=== PATIENT | female | born 1995 | race Caucasian/White ===

== ENCOUNTER 2018-10-22 07:34 | Outpatient (CLI) | payer OTHER ==
[~2018-10-22] VITALS: Ht 162.6 cm; Wt 80.6 kg
[2018-10-22 07:53] VITALS: Ht 162.6 cm; Wt 80.6 kg
[2018-10-22] MEDS ORDERED: PNV11TAB PO ×2 (07:55→11:41)
--- NOTE | 2018-10-22 12:40 | TRIAGE ---
OB Triage Datetime Report Generated by CPN: 10/22/2018 12:40 Datetime: 10/22/2018 11:25 Stage of : OB Triage Vaginal Exam Dilatation (cms): 2.0 Effacement (%): 50 Station: -1 Exam By: DR SALCEDA Datetime: 10/22/2018 11:17 Labor Evaluation Frequency: 7-10 Monitor Mode: External Duration (sec)2399: 50-70 Quality: Mild Pattern: Normal: <= 5 Contractions in 10 Minutes Resting Tone Diamond: Relaxed Heart Rate FHR Baseline Rate: 135 Monitor Mode: External US Variability: Moderate 6-25 bpm Accelerations: 10X10 Decelerations: None Category: Category I Pain Assessment Pain Scale: 4 Pain Presence: Intermittent Pain Type: Cramping Pain Location: Abdomen Pain Goal: 3 Pain Relief Measures: Comfort Measures Datetime: 10/22/2018 10:16 Labor Evaluation Frequency: 15-20 Monitor Mode: External Duration (sec)2399: 40-50 Quality: Mild Pattern: Normal: <= 5 Contractions in 10 Minutes Resting Tone Diamond: Relaxed Heart Rate FHR Baseline Rate: 135 Monitor Mode: External US Variability: Moderate 6-25 bpm Accelerations: 10X10 Decelerations: None Category: Category I Pain Assessment Pain Scale: 5 Pain Presence: Intermittent Pain Type: Cramping Pain Location: Abdomen Pain Goal: 3 Pain Relief Measures: Comfort Measures Datetime: 10/22/2018 08:46 Labor Evaluation Frequency: 0 Monitor Mode: External Pattern: Normal: <= 5 Contractions in 10 Minutes Resting Tone Diamond: Relaxed Heart Rate FHR Baseline Rate: 145 Monitor Mode: External US Variability: Moderate 6-25 bpm Accelerations: 10X10 Decelerations: None Category: Category I Pain Assessment Pain Scale: 5 Pain Presence: Intermittent Pain Type: Cramping Pain Location: Abdomen Pain Goal: 3 Pain Relief Measures: Comfort Measures Datetime: 10/22/2018 08:23 Stage of : OB Triage Datetime: 10/22/2018 07:48 Stage of : OB Triage Assessment Type: Triage EGA: 39.4 Maternal Assessment Level of Consciousness: Fully Conscious DTR's/Clonus: DTRs 2+; No Clonus Headache: Denies Blurred Vision: No Respiratory Effort: Unlabored; Regular Rhythm; Equal Expansion Breath Sounds, Left: Clear and Equal Breath Sounds, Right: Clear and Equal Nausea/Vomiting: Denies RUQ Epigastric Pain: Denies Facial Edema: None Temperature Route: Axillary Fall Risk Assessment History of Falling: (0) No Secondary Diagnosis: (0) No Ambulatory Aid: (0) Bedrest/Nurse Assist IV Therapy: (0) No Gait: (0) Normal/Bedrest/Immobile Mental Status: (0) Oriented to Own Ability Fall Score: 0 Fall Risk Score Definition: No Risk: No action required Labor Evaluation Frequency: 0 Monitor Mode: External Interventions: Sterile Vaginal Exam Heart Rate FHR Baseline Rate: 140 Monitor Mode: External US Variability: Moderate 6-25 bpm Accelerations: 10X10 Decelerations: None Category: Category I Pain Assessment Pain Scale: 5 Pain Presence: Intermittent Pain Type: Cramping; Contraction Pain Location: Abdomen Pain Goal: 3 Pain Relief Measures: Comfort Measures Vaginal Exam Dilatation (cms): 0.5 Effacement (%): LONG Station: -2 Exam By: SLAYNE Membrane Status: Intact Datetime: 10/22/2018 07:47 Time of Arrival: 10/22/2018 07:26 Arrived By: Ambulatory Arrived From: Home Chief Complaint: C/O UC'S SINCE MIDNIGHT APPROX EVERY 10 MIN, DENIES BLEEDING OR LEAKING Movement: Decreased Contractions: Irregular Contractions: 10 Rupture of Membranes: Denies Vaginal Bleeding: None Vaginal Discharge: Present Recent Sexual Intercouse: Denies Abdominal Trauma: Not Applicable Patient Complaints: Contractions; Cramping Time Provider Notified: 10/22/2018 08:23 Provider Notified: ISA Initial Plan: MONITOR, VE, EFW, BPP, CBC, U/A
--- NOTE | 2018-10-22 16:25 | PREOPHP ---
DATE OF ADMISSION: 10/22/2018 HISTORY OF PRESENT ILLNESS: This is a 23-year-old lady, 2, para 1, EDC of 10/25/2018 at 39-4 /7 weeks, admitted to labor and delivery area to rule out labor. She had care in my [place] office and the care was uneventful. She started to have mild irregular contractions few ho urs prior to admission. PAST PERSONAL HISTORY: No history of TB, asthma. ALLERGIES: NO ALLERGIES. SOCIAL HISTORY: The patient does not smoke. She does not drink. MEDICATIONS: She does not take any drugs except her: 1. Iron. 2. Vitamins. GYNECOLOGIC HISTORY: She had menarche at the age of 9, every 28 days interval, 3 to 4 days duration and moderate in amount. OBSTETRICAL HISTORY: She is 2, para 1. Her first delivery was in 2016. Baby weighed 7 poun ds 4 ounces. REVIEW OF SYSTEMS: CARDIOVASCULAR: No chest pains. RESPIRATORY: No cough. GASTROINTESTINAL: No diarrhea, no vomiting. GENITOURINARY: No dysuria. PHYSICAL EXAMINATION: GENERAL: Reveals a conscious, coherent lady and in no acute distress. VITAL SIGNS: Her blood pressure is 120/80, pulse rate 80 per minute, respirations 16 per minute. BREASTS, HEART AND LUNGS: Within normal limits. ABDOMEN: Soft. Fundic height 38 cm. heart tones normal. PELVIC: Done by me revealed the cervix to be fingertip and thick station -2 in cephalic presentation with the bag of water intact. EXTREMITIES: No pedal edema. ADMITTING DIAGNOSIS: A 39 and 4/7 weeks intrauterine , rule out labor. The patient had an OB ultrasound and the estimated weight was 3918 grams, 8 pounds and 6 ounces with an SPENCER of 12. The plans were explained to the patient as to go for Pitocin augmentation or to wait until she gets her contraction. The risks, benefits and alternatives to each plan were explaine d to the patient and to her partner. The patient and the partner did not like to have Pitocin augmen tation. Both of them decided to wait and they like to be induced Friday. The procedures were explai anali to the patient and she understood everything totally. The risks, benefits and alternatives were discussed with them as well. Dictated By: SARAI LISA/ELLIS Conf#: [id number] [facility]#: [id number]
== END 2018-10-22 11:49 | disposition home or self-care (01) ==
LOC: OBT 07:34 → L-D 07:36 → OBT 11:49
PROVIDERS: ATTEND Obstetrics & Gynecology
DX: O62.9 Abnormality of forces of labor, unspecified (principal); O99.513 Diseases of the respiratory system complicating pregnancy, third trimester; J45.909 Unspecified asthma, uncomplicated; Z3A.39 39 weeks gestation of pregnancy
CPT/HCPCS: 76815; 76818; 81001; 85025; 87086; Z7500; G0463

== ENCOUNTER 2018-10-26 06:00 | Inpatient (IN) | payer OTHER ==
[~2018-10-26] VITALS: Ht 160 cm; Wt 81.2 kg
[~2018-10-26 06:00] MED LIST: PNV11TAB PO
[2018-10-26] MEDS ORDERED: LACTATED RINGER'S 1,000 ML IV PRN (07:14)
[2018-10-26] MEDS ORDERED: LACTATED RINGER'S 1,000 ML IV SCH (07:14)
[2018-10-26] MEDS ORDERED: CARBOPROST 250 MCG INJ IM PRN ×3 (07:30→21:00)
[2018-10-26] MEDS ORDERED: BUTORPHANOL 2 MG INJ IV PRN (07:30)
[2018-10-26] MEDS ORDERED: LIDOCAINE 1% (MPF) 30 ML INJ INJ PRN (07:30)
[2018-10-26] MEDS ORDERED: OXYTOCIN 30 UNITS/LR 500 ML IV SCH ×4 (07:30→20:55)
[2018-10-26] MEDS ORDERED: METHYLERGONOVINE 0.2 MG INJ IM PRN ×3 (07:30→21:00)
[2018-10-26] MEDS ORDERED: MISOPROSTOL 200 MCG TAB PR PRN ×3 (07:30→21:00)
[2018-10-26] MEDS ORDERED: OXYTOCIN 30 UNITS/LR 500 ML IV PRN ×3 (07:30→21:00)
[2018-10-26] MEDS ORDERED: MISOPROSTOL 50 MCG CAPSULE VAG ONE (07:30)
[2018-10-26 07:33] VITALS: Ht 160 cm; Wt 81.2 kg
--- NOTE | 2018-10-26 14:58 | PREOPHP ---
DATE OF ADMISSION: 10/26/2018 HISTORY OF PRESENT ILLNESS: This is a 23-year-old lady, 2, para 1, EDC 10/25/2018, at 40 and 1/7 weeks, admitted for Pitocin augmentation. She had care in my [place] office and the pr enatal care was uneventful. She started to have mild irregular contractions a few hours prior to adm ission. PAST PERSONAL HISTORY: No history of diabetes, TB, asthma. ALLERGIES: No allergies. SOCIAL HISTORY: Patient does not smoke. She does not drink. MEDICATIONS: She does not take any drugs except her iron and vitamins. GYNECOLOGIC HISTORY: She had menarche at the age of 9, every 28 days interval, 3 to 4 days duration , and moderate in amount. FAMILY HISTORY: Noncontributory. She is 2, para 1. Her first delivery was in 2017. Normal delivery. Baby weighed 7 pounds 4 ounces. REVIEW OF SYSTEMS: CARDIOVASCULAR: No chest pains. RESPIRATORY: No cough. GASTROINTESTINAL: No diarrhea, no vomiting. GENITOURINARY: No dysuria. PHYSICAL EXAMINATION: GENERAL: Reveals a conscious, coherent lady and in no acute distress. VITAL SIGNS: Her blood pressure 120/80, pulse rate 80 per minute, respirations 16 per minute. BREASTS, HEART AND LUNGS: Within normal limits. ABDOMEN: Soft. No organomegaly. Fundic height 38 cm. heart tones 140 per minute. PELVIC: Done by me at 1:51 p.m. on 10/26/2018, revealed the cervix to be 4 to 5 cm dilated, 100% eff aced, station 0 in cephalic presentation with the bag of water intact and bulging. EXTREMITIES: No pedal edema. ADMITTING DIAGNOSIS: A 40 and 1/7 weeks intrauterine in labor. Patient was planned to con tinue with her Pitocin augmentation. The plans of delivery were explained to the patient as to go fo r vaginal delivery. The risks, benefits, and alternatives to vaginal delivery, a explained to her and to her partner. The risks of shoulder dystocia explained to both of them and the patient wanted to go for vaginal delivery and the nurse was present at the time of the discussion. PLAN: She is willing to take the risks of shoulder dystocia. Dictated By: SARAI LISA/ELLIS Conf#: [id number] [facility]#: [id number]
[2018-10-26] MEDS ORDERED: LACTATED RINGER'S 1,000 ML IV* SCH (20:11)
[2018-10-26] MEDS: SENNA/DOCUSATE NA (8.6MG/50MG) TAB PO SCH (20:28)
[2018-10-26 20:30] VITALS: BP 107/55; PULSE 81; RESP 19
[2018-10-26] MEDS ORDERED: HYDROCODONE/APAP (5/325) TAB PO PRN ×3 (20:30→21:00)
[2018-10-26] MEDS ORDERED: METHYLERGONOVINE 0.2 MG TAB PO PRN ×2 (20:30→21:00)
[2018-10-26] MEDS ORDERED: CEFAZOLIN 1 GM/50 ML (PMX) 50 ML IVPB ONE (20:30)
[2018-10-26] MEDS ORDERED: ACETAMINOPHEN 325 MG TAB PO PRN ×2 (20:30)
[2018-10-26] MEDS ORDERED: WITCH HAZEL/GLYCERIN PAD PR PRN ×2 (20:30→21:00)
[2018-10-26] MEDS ORDERED: LANOLIN HPA 1 PKT TOP PRN ×2 (20:30→21:00)
[2018-10-26] MEDS ORDERED: BENZOCAINE 20% 56 ML SPRAY TOP PRN ×2 (20:30→21:00)
[2018-10-26] MEDS ORDERED: ZOLPIDEM 5 MG TAB PO PRN ×2 (20:30→21:00)
[2018-10-26] MEDS ORDERED: MAGNESIUM HYDROXIDE 30ML CUP PO PRN ×2 (20:30→21:00)
[2018-10-26] MEDS ORDERED: NA PHOSPHATE/BIPHOS 133 ML ENEMA PR PRN ×2 (20:30→21:00)
[2018-10-26] MEDS ORDERED: ONDANSETRON 4 MG INJ IV PRN ×2 (20:30→21:00)
[2018-10-26] MEDS ORDERED: DIPHENHYDRAMINE 25 MG CAP PO PRN ×2 (20:30→21:00)
--- NOTE | 2018-10-26 20:50 | OPR ---
DATE OF OPERATION: 10/26/2018 This is a 23-year-old lady, 2, para 1, EDC 10/25/2018, at 40 and 1/7 weeks, admitted in early labor. HISTORY OF PRESENT ILLNESS: See dictated history and physical. PHYSICAL EXAMINATION: See dictated history and physical. ADMITTING DIAGNOSIS: 40 and 1/7 weeks intrauterine in early labor. PROGRESS OF LABOR: See dictated history and physical. The patient did not receive any pain medicati on because she refused. She at 1:51 p.m. she had artificial rupture of membranes. She was 4 to 5 cm and she progressed well. She had a normal spontaneous vaginal delivery on 10/26/2018, delivering a healthy baby boy, Apgars 9 and 9 over a first-degree midline perineal tear. The baby weighed 8 pound s 3 ounces. The placenta was delivered spontaneously and complete. Manual exploration of the uterus revealed no membranes left behind. The cervix, vagina, and vulva were free of hematoma. The position was direct occiput anterior. There were 3 vessels in the cord. The placenta was normal wit h a smooth shiny side and a pinkish maternal side. First first-degree midline perineal tear wa s repaired with continuous suture with 2-0 chromic. The patient tolerated the delivery well. Estima maryjo blood loss about 300 mL. Vital signs were stable during and after the delivery. Dictated By: SARAI LISA/ELLIS Conf#: [id number] DID#: [id number]
[2018-10-26] MEDS: LACTATED RINGER'S 1,000 ML IV* SCH (20:55)
[2018-10-26] MEDS ORDERED: IBUPROFEN 600 MG TAB PO PRN (21:00)
[2018-10-26] MEDS ORDERED: SENNA/DOCUSATE NA (8.6MG/50MG) TAB PO SCH (21:00)
[2018-10-26] MEDS: IBUPROFEN 600 MG TAB PO SCH (23:23)
[2018-10-27 03:00] VITALS: BP 112/60; PULSE 70; RESP 20
[2018-10-27] MEDS: LACTATED RINGER'S 1,000 ML IV* SCH ×2 (04:55→12:55)
[2018-10-27] MEDS: IBUPROFEN 600 MG TAB PO SCH ×4 (05:21→23:43)
[2018-10-27 08:00] VITALS: BP 112/68; PULSE 72; RESP 18
[2018-10-27] MEDS: SENNA/DOCUSATE NA (8.6MG/50MG) TAB PO SCH ×2 (09:47→20:46)
[2018-10-27 16:00] VITALS: BP 98/56; PULSE 75; RESP 16
--- NOTE | 2018-10-27 16:17 | PN ---
Date/Time of Note Date/Time of Note DATE: 10/27/18 TIME: 16:16 Assessment/Plan VTE Prophylaxis Risk score (from Ns)>0 risk: 1 SCD applied (from Ns): No SCD contraindicated: low risk/ambulating Pharmacological prophylaxis: NA/contraindicated Pharm contraindication: low risk/ambulating Lines/Catheters IV C[facility]ter Type [facility]from [facility] Saline Lock Assessment/Plan Assessment/Plan POST DAY 1 HOME TOMORROW RETURN TO CLINIC IN 2 WEEKS CONTINUE WITH VITAMINS OD AND FERROUS SULFATE PO TID DIET ADVISED COUNSELED INSTRUCTED CALL OFFICE IF THERE IS ANY PROBLEMS OR CONCERN Result Diagram: 10/27/18705 Results 24hrs Laboratory Tests Test 10/27/18 06:38 10/27/18 07:06 10/27/18 09:00 Lab Scanned Report REFERENCE LAB White Blood Count 13.4 #H Red Blood Count 3.55 L Hemoglobin 10.7 L Hematocrit 31.3 L Mean Corpuscular Volume 88.2 Mean Corpuscular Hemoglobin 30.1 Mean Corpuscular 34.2 Hemoglobin Concent Red Cell Distribution Width 13.6 Platelet Count 186 Mean Platelet Volume 10.2 Immature Granulocytes % 0.700 H Neutrophils % 75.6 Lymphocytes % 15.4 Monocytes % 7.2 Eosinophils % 0.7 Basophils % 0.4 Nucleated Red Blood Cells % 0.0 Immature Granulocytes # 0.100 H Neutrophils # 10.2 H Lymphocytes # 2.1 Monocytes # 1.0 H Eosinophils # 0.1 Basophils # 0.1 Nucleated Red Blood Cells # 0.0 Rapid Plasma Reagin NONREACTIVE Hepatitis B Surface Antigen NEGATIVE Subjective 24 Hr Interval Summary Free Text/Dictation FEELS GOOD, GOOD URINE OUTPUT, GOOD BOWEL MOVEMENT Exam/Review of Systems Exam Vitals Vital Signs Date Temp Pulse Resp B/P (MAP) Pulse Ox O2 O2 Flow FiO2 Time Delivery Rate 10/27/18 98.0 72 18 112/68 Room Air 08:00 (83) Intake and Output 10/26/18 10/26/18 10/27/18 1515:00 23:00 07:00 IntakeIntake Total 1598 ml 50 ml OutputOutput Total 1400 ml 769 ml 400 ml BalanceBalance -1400 ml 829 ml -350 ml Exam VITAL SIGNS STABLE: YES AFEBRILE: YES BREAST NOT ENGORGED, NON-TENDER, NO APPRECIABLE MASS: YES LUNGS CLEAR, NO RALES, WHEEZES, RHONCHI: YES SINUS RHYTHM WITHOUT MURMUR: YES ABDOMEN: NON-TENDER FUNDUS: BELOW UMBILICUS BOWEL SOUNDS: PRESENT UTERUS: FIRM PERINEAL TEAR HEALING WELL LOCHIA: LIGHT DEEP TENDON REFLEXES: 0 EXTREMITIES: NO CALF TENDERNESS EDEMA SCALE: NONE Results Results 24hrs Laboratory Tests Test 10/27/18 06:38 10/27/18 07:06 10/27/18 09:00 Lab Scanned Report REFERENCE LAB White Blood Count 13.4 #H Red Blood Count 3.55 L Hemoglobin 10.7 L Hematocrit 31.3 L Mean Corpuscular Volume 88.2 Mean Corpuscular Hemoglobin 30.1 Mean Corpuscular 34.2 Hemoglobin Concent Red Cell Distribution Width 13.6 Platelet Count 186 Mean Platelet Volume 10.2 Immature Granulocytes % 0.700 H Neutrophils % 75.6 Lymphocytes % 15.4 Monocytes % 7.2 Eosinophils % 0.7 Basophils % 0.4 Nucleated Red Blood Cells % 0.0 Immature Granulocytes # 0.100 H Neutrophils # 10.2 H Lymphocytes # 2.1 Monocytes # 1.0 H Eosinophils # 0.1 Basophils # 0.1 Nucleated Red Blood Cells # 0.0 Rapid Plasma Reagin NONREACTIVE Hepatitis B Surface Antigen NEGATIVE Medications Medication Current Medications Butorphanol Tartrate (Stadol) 2 mg Q2H PRN IV .PAIN SCALE 6-10; Start 10/26/18 at 07:30 Lidocaine (Xylocaine 1% (Mpf)) 30 ml ONCE PRN INJ .EPISIOTOMY; Start 10/26/18 at 07:30 Oxytocin/Lactated Ringer's 500 ml @ 500 mls/hr ONCE POST IV Last administered on 10/26/18at 18:58; Admin Dose 500 MLS/HR; Start 10/26/18 at 07:30 Oxytocin/Lactated Ringer's 500 ml @ 125 mls/hr POST IV Last a dministered on 10/26/18at 18:59; Admin Dose 125 MLS/HR; Start 10/26/18 at 07:30 Oxytocin/Lactated Ringer's 500 ml @ 0 mls/hr ONCE PRN IV .VAGINAL BLEEDING; Start 10/26/18 at 07:30 Methylergonovine Maleate (Methergine) 0.2 mg ONCE PRN IM .VAGINAL BLEEDING; Start 10/26/18 at 07:30 Carboprost Tromethamine (Hemabate) 250 mcg ONCE PRN IM .VAGINAL BLEEDING; Start 10/26/18 at 07:30 Misoprostol (Cytotec) 1,000 mcg ONCE PRN SC .VAGINAL BLEEDING; Start 10/26/18 at 07:30 Oxytocin/Lactated Ringer's 500 ml @ 0 mls/hr FOR INDUCTION IV Last administered on 10/26/18at 08:57; Admin Dose 1 MLS/HR; Start 10/26/18 at 07:30 Methylergonovine Maleate (Methergine) 0.2 mg Q6H PRN PO .VAGINAL BLEED; Start 10/26/18 at 20:30 Ibuprofen (Motrin) 600 mg Q6 PO Last administered on 10/27/18at 12:18; Admin Dose 600 MG; Start 10/27/18 at 00:00 Acetaminophen (Tylenol Tab) 650 mg Q4H PRN PO .PAIN 1-5 Last administered on at 20:28; Admin Dose 650 MG; Start 10/26/18 at 20:30 Ondansetron HCl (Zofran Inj) 4 mg Q6H PRN IV NAUSEA/VOMITING; Start 10/26/18 at 20:30 Diphenhydramine HCl (Benadryl) 25 mg Q6H PRN PO .PRUTITUS; Start 10/26/18 at 20:30 Zolpidem Tartrate (Ambien) 5 mg QHS PRN PO .INSOMNIA; Start 10/26/18 at 20:30 Senna/Docusate Sodium (Senokot-S) 1 tab BID PO Last administered on 10/27/18at 09:47; Admin Dose 1 TAB; Start 10/26/18 at 21:00 Magnesium Hydroxide (Milk Of Mag) 30 ml Q12H PRN PO .CONSTIPATION; Start 10/26/18 at 20:30 Sodium Biphosphate/ Sodium Phosphate (Fleet Enema) 133 ml DAILY PRN SC .CONSTIPATION; Start 10/26/18 at 20:30 Witch Korin/ Glycerin (Tucks Pads) 1 pad BEDSIDE MEDICATION PRN SC .HEMORRHOID/EPISIOTOMY PAIN; Start 10/26/18 at 20:30 Benzocaine (Dermoplast [place]) 1 spray BEDSIDE MEDICATION PRN TOP .HEMMORHOID/EPISIOTOMY PAIN; Start 10/26/18 at 20:30 Lanolin (Lanolin Hpa) 1 applic BEDSIDE MEDICATION PRN TOP .NIPPLES; Start 10/26/18 at 20:30 Measles/Mumps/ Rubella Vaccine Live (Mmr Ii Vaccine) 0.5 ml ONCE ONCE SC* ; Start 10/28/18 at 09:00; Stop 10/28/18 at 09:01 Diphtheria/ Tetanus/Acell Pertussis (Adacel) 0.5 ml ONCE ONCE IM* ; Start 10/28/18 at 09:00; Stop 10/28/18 at 09:01 Varicella Virus Vaccine Live (Varivax Vaccine With Diluent) 1,350 unit ONCE ONCE SC* ; Start 10/28/18 at 09:00; Stop 10/28/18 at 09:01 Acetaminophen (Tylenol Tab) 650 mg Q4H PRN PO .TEMP; Start 10/26/18 at 20:30 Oxytocin/Lactated Ringer's 500 ml @ 0 mls/hr ONCE PRN IV .VAGINAL BLEEDING; Start 10/26/18 at 20:30 Methylergonovine Maleate (Methergine) 0.2 mg ONCE PRN IM .VAGINAL BLEEDING; Start 10/26/18 at 20:30 Carboprost Tromethamine (Hemabate) 250 mcg ONCE PRN IM .VAGINAL BLEEDING; Start 10/26/18 at 20:30 Misoprostol (Cytotec) 1,000 mcg ONCE PRN SC .VAGINAL BLEEDING; Start 10/26/18 at 20:30 Lactated Ringer's 1,000 ml @ 125 mls/hr Q8H IV* ; Start 10/26/18 at 20:55 Ibuprofen (Motrin) 600 mg Q6 PRN PO MILD PAIN LEVEL 1-3; Start 10/26/18 at 21:00 Acetaminophen/ Hydrocodone Bitart ([place] (5/325)) 1 tab Q4H PRN PO MODERATE PAIN LEVEL 4-6; Start 10/26/18 at 21:00 Acetaminophen/ Hydrocodone Bitart ([place] (5/325)) 2 tab Q4H PRN PO SEVERE PAIN LEVEL 7-10; Start 10/26/18 at 21:00 Oxytocin/Lactated Ringer's 500 ml @ 0 mls/hr ONCE PRN IV .VAGINAL BLEEDING; Start 10/26/18 at 21:00 SARAI MOSS MD October 27, 2018 16:17
[2018-10-27 20:15] VITALS: BP 106/61; PULSE 59; RESP 18
[2018-10-28 03:30] VITALS: BP 99/53; PULSE 70; RESP 19
[2018-10-28] MEDS: IBUPROFEN 600 MG TAB PO SCH ×2 (05:25→11:51)
[2018-10-28 07:15] VITALS: BP 110/68; PULSE 58; RESP 16
[2018-10-28] MEDS: SENNA/DOCUSATE NA (8.6MG/50MG) TAB PO SCH (08:28)
[2018-10-28] MEDS ORDERED: DIPHTH/TET/ACEL PERTUSS (ADULT) 0.5 ML VIAL IM* ONE (09:00)
[2018-10-28] MEDS ORDERED: VARICELLA VACCINE LIVE/PF 1,350 UNIT/0.5 ML ML SC* ONE (09:00)
[2018-10-28] MEDS ORDERED: MEASLES,MUMPS,RUBELLA VACCINE INJ SC* ONE (09:00)
--- NOTE | 2018-10-29 14:38 | DELSUM ---
Delivery Summary A-C Datetime Report Generated by CPN: 10/29/2018 14:38 DELIVERY PERSONNEL Pipefitter Helper: Sanju, Poly MATERNAL INFORMATION Delivery Anesthesia: None Medications in Delivery: Pitocin 30 units in LR Delivery QBL (ml): 319 Placenta Cultured: No Maternal Complications: None LABOR SUMMARY EDC: 10/25/2018 00:00 No. Babies in Womb: 1 Attempted: No Labor Anesthesia: None LABOR INFORMATION Reason for Induction: Postterm Onset of Labor: 10/26/2018 13:45 Complete Dilatation: 10/26/2018 18:00 Oxytocin: Induction Group B Beta Strep: Negative Antibiotics # of Doses: 0 Steroids Given: None Reason Steroids Not Administered: Not Applicable MEMBRANES Membranes Rupture Method: Artificial Rupture of Membranes: 10/26/2018 13:45 Length of Rupture (hr): 4.32 Amniotic Fluid Color: Clear Amniotic Fluid Amount: Small Amniotic Fluid Odor: None STAGES OF LABOR Stage 1 hr: 4 Stage 1 min: 15 Stage 2 hr: 0 Stage 2 min: 4 Stage 3 hr: 0 Stage 3 min: 9 Total Time in Labor hr: 4 Total Time in Labor min: 28 VAGINAL DELIVERY Episiotomy: None Laceration Extension: First Degree Laceration Type: Perineal Laceration Repair: Yes Initial Vag Sponge Count: 10 Final Vag Sponge Count: 10 Initial Vag Sharps Count: 2 Final Vag Sharps Count: 2 Sponge Count Correct: Yes Sharps Count Correct: Yes BABY A INFORMATION Delivery Date/Time: 10/26/2018 18:04 Method of Delivery: Vaginal Born in Route : No : N/A Forceps: N/A Vacuum Extraction: N/A Shoulder Dystocia : N/A SHOULDER DYSTOCIA BABY A Infant Delivery Date/Time: 10/26/2018 18:04 PRESENTATION/POSITION BABY A Presentation: Cephalic Cephalic Presentation: Vertex Vertex Position: Left Occipital Anterior Breech Presentation: N/A PLACENTA INFORMATION BABY A Placenta Delivery Time : 10/26/2018 18:13 Placenta Method of Delivery: Spontaneous Placenta Status: Delivered SCORES BABY A Heart Rate 1 min: >100 bpm Resp Effort 1 min: Good Cry Reflex Irritability 1 min: Cough/Sneeze/Pulls Away Muscle Tone 1 min: Active Motion Color 1 min: Body [place], Extremit Blue Resuscitation Effort 1 min: Tactile Stimulation SCORE 1 MIN: 9 Heart Rate 5 min: >100 bpm Resp Effort 5 min: Good Cry Reflex Irritability 5 min: Cough/Sneeze/Pulls Away Muscle Tone 5 min: Active Motion Color 5 min: Body [place], Extremit Blue Resuscitation Effort 5 min: Tactile Stimulation SCORE 5 MIN: 9 INFORMATION BABY A Gestational Age at Delivery: 40.1 Gestational Status: Full Term- 39- 40.6 Weeks Outcome : Liveborn Condition : Stable Infant Sex: Male IDENTIFICATION/MEDS BABY A ID Band Number: [id number] ID Band Location: Right Leg; Left Arm Sensor Applied: Yes Sensor Number: [id number] Sensor Location : Cord Clamp Vitamin K Given : Not Given Erythromycin Given: Not Given WEIGHT/LENGTH BABY A Birthweight (gm): 3700 Infant Weight (lb): 8 Infant Weight (oz): 3 Infant Length (in): 20.00 Length (cm): 50.80 CORD INFORMATION BABY A No. Cord Vessels: 3 Nuchal Cord : N/A Cord Blood Taken: N/A Suction: Mouth
--- NOTE | 2018-11-01 17:25 | DS ---
DATE OF ADMISSION: 10/26/2018 DATE OF DISCHARGE: 10/28/2018 This is a 23-year-old lady, 2, para 1, at 40 and 1/7 weeks, admitted for delivery. HISTORY OF PRESENT ILLNESS: See dictated history and physical. PHYSICAL EXAMINATION: See dictated history and physical. ADMITTING DIAGNOSIS: 40 and 1/7 weeks intrauterine in labor. PROGRESS OF LABOR: See dictated history and physical. HOSPITAL COURSE: Patient progressed well, had a normal spontaneous vaginal delivery and delivered a healthy baby boy, Apgars 9 and 9 over a second-degree midline perineal tear. She tolerated the deliv abel well. She did have good course. She has had a regular diet. She has good bowel move ment . She was discharged home on the second day on general diet and activity w as restricted. She was counseled. She was instructed. She was told to come back to the clinic in 2 weeks. She was told to continue to take her iron and vitamins at home. Hematocrit on discharge 10. 7, hemoglobin 31.3. FINAL DIAGNOSES: 40 and 1/7 weeks intrauterine in labor, delivered, chronic iron deficienc y anemia. Dictated By: SARAI LISA/ELLIS Conf#: [id number] DID#: [id number]
== END 2018-10-28 13:15 | disposition home or self-care (01) | DRG 807 ==
LOC: L-D 06:22 → PP1 20:13
PROVIDERS: ADMIT Obstetrics & Gynecology; ATTEND Obstetrics & Gynecology
PROC: 0HQ9XZZ Repair Perineum Skin, External Approach (ICD-10-PCS; 2018-10-26)
PROC: 10E0XZZ Delivery of Products of Conception, External Approach (ICD-10-PCS; principal; 2018-10-26 06:00)
DX: O48.0 Post-term pregnancy (principal); Z37.0 Single live birth; O70.0 First degree perineal laceration during delivery; Z3A.40 40 weeks gestation of pregnancy
CPT/HCPCS: 76815; 80076; 85025; 85610; 85730; 86592; 86900; 86901; 87340; 90715; 90716; 99464; J0690; J2590; J7120